=== PATIENT | female | born 1985 | race Caucasian/White ===

== ENCOUNTER → 2021-05-01 03:50 | Outpatient (CLI) | payer OTHER, SELFPAY ==
[2021-05-02 19:26] LABS: SARS-CoV-2 RNA PCR Negative
== END ==
PROVIDERS: PCP Physician Assistant; Visit Provider Obstetrics & Gynecology
DX: Z01.812 Encounter for preprocedural laboratory examination (principal); Z20.822 Contact with and (suspected) exposure to COVID-19
CPT/HCPCS: C9803; U0003; U0005

== ENCOUNTER 2021-05-04 01:00 | Day surgery (SDC) | payer OTHER, SELFPAY ==
[2021-04-30 14:11] VITALS: BMI 21.9
[2021-05-04 07:39] VITALS: BP 131/94; PULSE 96; RESP 16; TEMP 36.8; O2SAT 100
--- NOTE | 2021-05-04 07:44 | P.HP_ITS ---
H&P: HPI History of Present Illness Date/Time: 05/04/21 07:44 33-year-old female 2 para 2 who was followed by my Physician associate Juliana Iqbal PA-C with a history of abnormal Pap smear on 12/27/2020 HGSIL with HPV positive who underwent colposcopic examination On 02/09/2021 and was found to have HGSIL with severe dysplasia MARQUEZ 3 and positive endocervical curettings. She was counseled regarding the need for LEEP loop electrosurgical excision procedure to rule out invasive disease. She is now being admitted for the LEEP procedure she understands her condition procedure and risk involved bleeding infection injury to the cervix possible cervical stenosis or incompetence cervix in the future she understands accepts and agrees to proceed. Review of Systems Review of Systems: All systems reviewed & are unremarkable except as noted in HPI and below Constitutional: Constitutional: Reports no additional constitutional compla ints Eyes: Eyes: Reports no additional eye complaints ENT: Reports system reviewed and no additional complaints, except as documented Cardiovascular: Cardiovascular: Reports no additional cardiovascular complaints Respiratory: Respiratory: Reports no additional respiratory complaints Gastrointestinal: Gastrointestinal: Reports no additional gastrointestinal complaints Genitourinary: Genitourinary: Reports no additional female genitourinary complaints Musculoskeletal: Musculoskeletal: Reports no additional musculoskeletal complaints Integumentary/Breasts: Skin/Breast: Reports system reviewed and no additional complaints, except as docu Neurologic: Reports system reviewed and no additional complaints, except as documented [facility] Social History Social History Years smoked: 5 Smoking status: Former smoker Tobacco type: cigarettes Smoking end date: 04/30/11 Living arrangements: with family Spiritual care concerns: No Meds Home Medications and Allergies Home Medications Medication Instructions Recorded Confirmed Type No Home Medications 04/30/21 05/04/21 History Allergies Allergy/AdvReac Type Severity Reaction Status Date / Time No Known Allergies Allergy Verified 05/04/21 07:42
--- NOTE | 2021-05-04 07:50 | PM.HPGS ---
History of Present Illness History of Present Illness Consent: Risks, benefits, and alternatives have been discussed and questions answered. Patient agrees to proceed with procedure. Chief complaint: Carcinoma of Cervix unspecified MARQUEZ 3 Narrative: Rowena Duque 33-year-old female 2 para 2 who was followed by my Physician associate Juliana Iqbal PA-C with a history of abnormal Pap smear on 12/27/2020 HGSIL with HPV positive who underwent colposcopic examination On 02/09/2021 and was found to have HGSIL with severe dysplasia MARQUEZ 3 and positive endocervical curettings. She was counseled regarding the need for LEEP loop electrosurgical excision procedure to rule out invasive disease. She is now being admitted for the LEEP procedure she understands her condition procedure and risk involved bleeding infection injury to the cervix possible cervical stenosis or incompetence cervix in the future she understands accepts and agrees to proceed. Review of Systems Review of Systems: All systems reviewed & are unremarkable except as noted in HPI and below Constitutional: Constitutional: Reports no additional constitutional complaints Eyes: Eyes: Reports no additional eye complaints ENT: Reports system reviewed and no additional complaints, except as documented Cardiovascular: Cardiovascular: Reports no additional cardiovascular complaints Respiratory: Respiratory: Reports no additional respiratory complaints Gastrointestinal: Gastrointestinal: Reports no additional gastrointestinal complaints Genitourinary: Genitourinary: Reports no additional female genitourinary complaints Musculoskeletal: Musculoskeletal: Reports no additional musculoskeletal complaints Integumentary/Breasts: Skin/Breast: Reports system reviewed and no additional complaints, except as docu Neurologic: Reports system reviewed and no additional complaints, except as documented Psychiatric: Psychiatric: Reports no additional psychiatric complaints Endocrine: Endocrine: Reports no additional endocrine complaints Hematologic/Lymphatic: Hematologic/Lymphatic: Reports no additional hematologic/lymphatic complaints Allergic/Immunologic: Allergic/Immunologic: Reports no additional allergic/immunologic complaints [facility] Past Medical History Medical History Abnormal Pap smear of cervix MARQUEZ III (cervical intraepithelial neoplasia grade III) with severe dysplasia HPV (human papilloma virus) anogenital infection Vaginal delivery Vaginal delivery Surgical History Surgical History (Updated 05/04/21 @ 07:54 by Damaso Edmondson MD) H/O colposcopy with cervical biopsy Family History Family History Other Blood disorder Depression Heart disease Hypertension Social History Social History (Updated 05/04/21 @ 07:55 by Damaso Edmondson MD) Years smoked: 5 Smoking status: Former smoker Tobacco type: cigarettes Smoking end date: 04/30/11 Alcohol intake: never Substance use: never Living arrangements: with family Occupation/Education: occupation Gender identity (if verbalized by the patient): Female Sexual Orientation (if Verbalized by the Patient): Straight or Heterosexual Spiritual care concerns: No Agree to blood products: Yes Meds Home Medications and Allergies Home Medications Medication Instructions Recorded Confirmed Type No Home Medications 04/30/21 05/04/21 History Allergies Allergy/AdvReac Type Severity Reaction Status Date / Time No Known Allergies Allergy Verified 05/04/21 07:42 Vital Signs Vital Signs - 24 hr 05/04/21 07:39 Temperature 98.2 F Pulse Rate 96 Respiratory Rate 16 Blood Pressure 131/94 H Pulse Oximetry 100 Exam Const: General: cooperative, healthy appearing, comfortable, no acute distress, well developed, alert, awake and Physically active Nut
[2021-05-04] MEDS: LACTATED RINGERS 1,000 ML 30 ML IV CONT (07:57)
--- NOTE | 2021-05-04 07:58 | P.HPUP_ITS ---
History and Physical Update Update Date/Time: 05/04/21 07:58 History and Physical has been reviewed, including an updated exam of the patient. There are NO changes in the patient's condition. Risks, benefits, and alternatives have been discussed and questions answered. Patient agrees to proceed with procedure. Chief complaint: Carcinoma of Cervix unspecified MARQUEZ 3 Narrative: Rowena Duque 33-year-old female 2 para 2 who was followed by my Physician associate Juliana Iqbal PA-C with a history of abnormal Pap smear on 12/27/2020 HGSIL with HPV positive who underwent colposcopic examination On 02/09/2021 and was found to have HGSIL with severe d ysplasia MARQUEZ 3 and positive endocervical curettings. She was counseled regarding the need for LEEP loop electrosurgical excision procedure to rule out invasive disease. She is now being admitted for the LEEP procedure she understands her condition procedure and risk involved bleeding infection injury to the cervix possible cervical stenosis or incompetence cervix in the future she understands accepts and agrees to proceed.
--- NOTE | 2021-05-04 08:27 | WPDANESEPPF ---
Anes - Initial Pre Proc Eval Procedure: Operation Date: 05/04/21 09:00 Proposed Procedures p Loop Electrical Excision Procedure - Damaso Edmondson MD Date/Time: 05/04/21 08:27 Surgeon: Damaso Edmondson MD Pre Op Diagnosis: Carcinoma of Cervix unspecified MARQUEZ 3 Patient Data Age: 35 Gender: F Height: 1.7 m Weight: 65.25 kg Last Vital Signs Temp 36.8 C 05/04/21 07:39 Pulse 96 05/04/21 07:39 Resp 16 05/04/21 07:39 BP 131/94 H 05/04/21 07:39 Pulse Ox 100 05/04/21 07:39 Allergies Allergy/AdvReac Type Severity Reaction Status Date / Time No Known Allergies Allergy Verified 05/04/21 07:42 Home Medications Medication Instructions Recorded Confirmed Type No Home Medications 04/30/21 05/04/21 History Patient hx anesthesia problems: none Family hx anesthesia problems: none Results Review: All pre-operative results and documents have been reviewed as part of the pre-operative evaluation. [facility] Past Medical History Medical History Abnormal Pap smear of cervix MARQUEZ III (cervical intraepithelial neoplasia grade III) with severe dysplasia HPV (human papilloma virus) anogenital infection Vaginal delivery Vaginal delivery Surgical History Surgical History H/O colposcopy with cervical biopsy Family History Family History Other Blood disorder Depression Heart disease Hypertension Social History Social History Years smoked: 5 Smoking status: Former smoker Tobacco type: cigarettes Smoking end date: 04/30/11 Alcohol intake: never Substance use: never Living arrangements: with family Occupation/Education: occupation Gender identity (if verbalized by the patient): Female Sexual Orientation (if Verbalized by the Patient): Straight or Heterosexual Spiritual care concerns: No Agree to blood products: Yes Anes - Eval Final PreProcedure Day of Procedure 05/04/21 08:27 Heart: regular rate and rhythm Airway: Mallampati scale Neurological: alert and oriented Last oral intake: >/= 8 hours ASA classification: I Emergent: no Anesthetic plan: proceed Anesthesia type and monitoring: general GIVS and standard monitoring Results Review: All pre-operative results and documents have been reviewed as part of the pre-operative evaluation. Informed Consent: The patient's anesthetic plan and its attendant risks and benefits were discussed with the patient/family/POA. Questions were solicited and answers provided to the satisfaction of the patient/family/POA.
[2021-05-04] MEDS: ceFAZolin 2 GM/D5W 50 ML 2 GM/50 ML BAG IVPB (09:10)
[2021-05-04] MEDS: KETOROLAC 30 MG/ML VIAL (*BKC) IV PUSH (09:39)
[2021-05-04 09:50] VITALS: BP 104/68; PULSE 70; RESP 12; O2SAT 98
--- NOTE | 2021-05-04 09:56 | P.OP_ITS ---
Procedure Note - Detailed Date of Procedure 05/04/21 Pre-op Diagnosis Carcinoma of Cervix unspecified LAURY 3 Post-op Diagnosis same (laury 3) Procedure Performed LEEP Loop Electrosurgical excision procedure Surgeon Damaso Edmondson MD Dialysis Chief Equipment Technician surgical assistant certified x2 Anesthesia general Indications CIN3 Findings Ectocervical non staining areas hemostatic sutures and monsels counts correct comps none VTE not applicable atbx ancef 2 grams to pacu stable condition Description of Procedure Informed consent obtained. The patient was taken to the operating room was given general anesthesia was then placed in the dorsal lithotomy position prepped and draped in the usual sterile fashion and a time-out was performed. Weighted speculum placed into the fold vagina anterior retractor was placed ascetic acid wash of the cervix was followed by Lugol staining of the cervix and the nonstaining areas of the cervix were identified in the ectocervix. Sutures were placed at 3 and 9:00 a.m. on the cervix for hemostasis. Medium loop electrosurgical excision of the ectocervix was then performed with specimen sent to pathology followed by a small loop electrosurgical excision of the endocervix sent to pathology. Ball electrode was then used to endo coagulate the remaining cervical tissue. Monsel's solution was applied to the cervix hemostasis excellent the sutures were cut speculum and retractors were removed the patient was the taken to the recovery room in stable condition tolerated the procedure well. Implants none Estimated Blood Loss 5 IV Fluids 1,000 Drains No Packing No Pathology yes (LEEP ectocervical and endocervical) Complications None Condition stable Disposition same day
[2021-05-04 10:20] VITALS: BP 116/80; PULSE 59; RESP 14; O2SAT 99
[2021-05-04] MEDS: fentaNYL CITRATE INJ (*CRX) 100 MCG/2 ML VIAL 25 MCG IV PUSH ×2 (10:39→10:42)
[2021-05-04 10:54] VITALS: BP 136/96
[2021-05-04 11:25] VITALS: BP 141/90; PULSE 58
== END 2021-05-04 11:30 | disposition home or self-care (01) ==
PROVIDERS: Visit Provider Obstetrics & Gynecology
PROC: 0UBC7ZZ Excision of Cervix, Via Natural or Artificial Opening (ICD-10-PCS; CPT 57522; principal; 2021-05-04 09:00)
DX: D06.1 Carcinoma in situ of exocervix (principal); A63.0 Anogenital (venereal) warts; Z87.891 Personal history of nicotine dependence
CPT/HCPCS: 57522; 88305; A9270; J0690; J1885; J2250; J2704; J3010; J7120